=== PATIENT | female | born 1980 | race Caucasian/White ===

== ENCOUNTER 2019-12-15 10:51 | Inpatient (IN) | payer OTHER ==
--- NOTE | 2019-12-15 11:07 | BHS.RME ---
Substance Use & Tx History - Substance Use History Heroin Substance amount: 4 bags Frequency of use: Daily Substance route: Inhalation (ex: sniffing or snorting) Date of Last Use: 12/15/19 Xanax Substance amount: 2mg 2-3 tabs Frequency of use: Daily Substance route: Oral Date of Last Use: 12/13/19 Nicotine Substance amount: 1/2pack Frequency of use: Daily Substance route: Smoking Date of Last Use: 12/15/19 Physical/Psych/Mental Status - Behavior General Behavior: Increased activity (restlessness, agitation) Eye Contact: Normal - Cooperativeness Cooperativeness: Cooperative - Thinking Thought Processes: Tight, Logical, Goal Directed - Physical Health Problems Is patient presently having any pain?: No Does patient presently have any injuries (include location): No Does patient currently have a fever: No Is patient : No COWS - Scale Resting Pulse: 1= [place] 81-100 Sweatin= Chills/Flushing Restless Observation: 1= Difficult to Sit Still Pupil Size: 1= Pupils >than Normal Bone or Joint Aches: 2= Severe Diffuse Aches Runny Nose/ Eye Tearin= Nasal Congestion GI Upset > 30mins: 1= Stomach Cramp Tremor Observation: 1= Tremor [place], Not Seen Yawning Observation: 1= 1-2x During Session Anxiety or Irritability: 2=Irritable/Anxious Goose Flesh Skin: 0=Smooth Skin COWS Score: 12
--- NOTE | 2019-12-15 11:44 | HP ---
COWS - Scale Resting Pulse: 1= [place] 81-100 Sweatin= Chills/Flushing Restless Observation: 1= Difficult to Sit Still Pupil Size: 1= Pupils >than Normal Bone or Joint Aches: 2= Severe Diffuse Aches Runny Nose/ Eye Tearin= Nasal Congestion GI Upset > 30mins: 1= Stomach Cramp Tremor Observation: 1= Tremor [place], Not Seen Yawning Observation: 1= 1-2x During Session Anxiety or Irritability: 2=Irritable/Anxious Goose Flesh Skin: 0=Smooth Skin COWS Score: 12 CIWA Score - Admission Criteria OASAS Guidelines: Admission for Medically Managed Detox: Requires at least one of the followin. CIWA greater than 12 2. Seizures within the past 24 hours 3. Delirium tremens within the past 24 hours 4. Hallucinations within the past 24 hours 5. Acute intervention needed for co occurring medical disorder 6. Acute intervention needed for co occurring psychiatric disorder 7. Severe withdrawal that cannot be handled at a lower level of care (continued vomiting, continued diarrhea, abnormal vital signs) requiring intravenous medication and/or fluids 8. Admitting History and Physical - Admission Chief Complaint: Ms. Simons is a 39 yo woman who presents to [facility] requesting a detox admission for heroin and benzodiazepine use. History of Present Illness: Ms. Simons is a 39 yo woman who presents to [facility] requesting a detox admission for heroin and benzodiazepine use. This is her first visit to [facility]. PMH: gastritis, herniated lumbar discs PSH/Legal: none Psych: paranoid schizophrenia, bipolar, anxiety, on meds/compliant SOC: lives with significant other Substance Use History Heroin Substance amount: 4 bags heroin, 4 bags Fentanyl Frequency of use: Daily Substance route: Inhalation (ex: sniffing or snorting) Date of Last Use: 12/15/19 First use age 38 y Xanax Substance amount: 2mg 2-3 tabs Frequency of use: Daily Substance route: Oral Date of Last Use: 12/13/19 First use age 26y Nicotine Substance amount: 1/2pack Frequency of use: Daily Substance route: Smoking Date of Last Use: 12/15/19 First use age 12 y History Source: Patient Limitations to Obtaining History: No Limitations Admission [facility] [place] Allergies/Adverse Reactions: Allergies Allergy/AdvReac Type Severity Reaction Status Date / Time Penicillins Allergy Difficulty Verified 12/15/19 11:33 Breathing Exam Limitations: No Limitations - Ebola screening Have you traveled outside of the country in the last 21 days: No Have you been sick,other than usual withdrawal symptoms: No Do you have a fever: No - Review of Systems Constitutional: No Symptoms Reported EENT: reports: No Symptoms Reported Respiratory: reports: No Symptoms reported Cardiac: reports: No Symptoms Reported GI: reports: No Symptoms Reported : reports: No Symptoms Reported Musculoskeletal: reports: Back Pain (herniated lumbar discs) Integumentary: reports: No Symptoms Reported Neuro: reports: No Symptoms reported Endocrine: reports: No Symptoms Reported Hematology: reports: No Symptoms Reported Psychiatric: reports: Anxious Patient History - Smoking Cessation Smoking history: Current every day smoker Have you smoked in the past 12 months: Yes Aproximately how many cigarettes per day: 10 Hx Chewing Tobacco Use: No Initiated information on smoking cessation: Yes 'Breaking Loose' booklet given: 12/15/19 - Substances abused Alprazolam (Xanax) Substance route: Oral Frequency: Daily Amount used: 2-3 TABS Age of first use: 26 Date of last use: 12/13/19 Other Other (specify): FENTANYL Substance route: Inhalation Frequency: Daily Amount used: 4 BAGS Age of first use: 38 Date of last use: 12/15/19 Admission Physical Exam [facility] - Physical General Appearance: Yes: No Apparent Distress, Nourished HEENTM: Yes: EOMI, Hearing grossly Normal, Normocephalic, Normal Voice Respiratory: Yes: Lungs Clear, Normal Breath Sounds, No Accessory Muscle Use Neck: Yes: Within Normal Limits, Supple Breast: Yes: Breast Exam Deferred Cardiology: Yes: Regular Rhythm, Regular Rate, S1, S2 Abdominal: Yes: Normal Bowel Sounds, Non Tender, Flat, Soft Genitourinary: Yes: Other (deferred) Back: Yes: Normal Inspection Musculoskeletal: Yes: Gait Steady Extremities: Yes: Normal Inspection, Non-Tender Neurological: Yes: Alert, Normal Mood/Affect, Normal Response Integumentary: Yes: Normal Color, Dry, Warm - Diagnostic (1) Opioid withdrawal Current Visit: Yes Status: Acute (2) Sedative dependence Current Visit: Yes Status: Acute (3) Nicotine dependence Current Visit: Yes Status: Acute (4) Bipolar 1 disorder Current Visit: Yes Status: Acute Cleared for Admission S - Detox or Rehab [facility] Level of Care: Medically Managed Detox Regimen/Protocol: Ativan, Methadone Inpatient Rehab Admission - Rehab Decision to Admit Inpatient rehab admission?: No
[2019-12-15 11:56] VITALS: BMI 25.9
[2019-12-15] MEDS ORDERED: BISMUTH SUBSALICYLATE 262 MG/15 ML BTL PO PRN (12:12)
[2019-12-15] MEDS ORDERED: METHOCARBAMOL 500 MG TABLET PO PRN (12:12)
[2019-12-15] MEDS ORDERED: MENTHOL/PHENOL 1 EACH UD MM PRN (12:12)
[2019-12-15] MEDS ORDERED: MAGNESIUM HYDROX 2400MG/30ML ORAL SUSPENSION 30 ML CUP PO PRN (12:12)
[2019-12-15] MEDS ORDERED: METHADONE HCL 10 MG TABLET (FOR DETOX USE ONLY) PO ONE (12:12)
[2019-12-15] MEDS ORDERED: ONDANSETRON *ODT* 4 MG TABLET SL PRN (12:12)
[2019-12-15] MEDS ORDERED: LORazepam 1 MG TABLET PO PRN (12:12)
[2019-12-15] MEDS ORDERED: cloNIDine HCL 0.1 MG TABLET PO PRN (12:12)
[2019-12-15] MEDS ORDERED: ACETAMINOPHEN 325 MG TABLET (FP) PO PRN ×2 (12:12)
[2019-12-15] MEDS ORDERED: MAGNESIUM CITRATE 300 ML BOTTLE PO PRN (12:12)
[2019-12-15] MEDS ORDERED: IBUPROFEN 400 MG TABLET (FP) PO PRN (12:12)
[2019-12-15] MEDS ORDERED: MAG HYDROX/AL HYDROX/SIMETH 30 ML UNIT-DOSE CUP PO PRN (12:12)
[2019-12-15] MEDS ORDERED: NICOTINE POLACRILEX 2 MG GUM BUC PRN (12:12)
[2019-12-15] MEDS: PRENATAL VITAMINS W/ FOLIC ACID TABLET (FP) PO SCH (13:15)
[2019-12-15] MEDS: NICOTINE 14 MG/24 HOURS TOPICAL PATCH TD SCH (13:15)
--- NOTE | 2019-12-15 14:10 | EKG ---
Test Reason : Blood Pressure : / mmHG Vent. Rate : 071 BPM Atrial Rate : 071 BPM P-R Int : 144 ms QRS Dur : 094 ms QT Int : 420 ms P-R-T Axes : 053 010 030 degrees QTc Int : 456 ms NORMAL SINUS RHYTHM INCOMPLETE RIGHT BUNDLE BRANCH BLOCK BORDERLINE ECG NO PREVIOUS ECGS AVAILABLE Confirmed by Pedro Sanabria MD ([id number]) on 12/15/2019 2:09:45 PM Referred By: Confirmed By:Pedro Sanabria MD
[2019-12-15 17:05] LABS: HEMATOCRIT 37.5 % (32.4-45.2); HEMOGLOBIN 12.5 GM/dL (10.7-15.3); MCHC 33.4 g/dl (32.0-36.0); MEAN CELL VOLUME 92.6 fl (80-96); MEAN PLT VOLUME 8.9 fl (7.5-11.1); PLATELET COUNT 182 K/MM3 (134-434); RBC 4.05 M/mm3 (3.60-5.2); RDW 13.1 % (11.6-15.6)
--- NOTE | 2019-12-15 17:21 | CONSULT ---
[facility] Psychiatric Consult - Data Date of interview: 12/15/19 Admission source: [facility] Identifying data: First visit to [facility] and admission to [address] [place] [address] for this 39 y/o female self-referred for detoxification treatment. JOEY issues : heroin, benzodiazepine, nicotine. Patient is single, no dependents, domiciled (lives with biological mother), unemployed and supported on [facility] benefits. Substance Abuse History: Discussed with the patient. JOEY profile as follows : Smoking history: Current every day smoker. Have you smoked in the past 12 months: Yes. Aproximately how many cigarettes per day: 10. Hx Chewing Tobacco Use: No. Initiated information on smoking cessation: Yes. 'Breaking Loose' booklet given: 12/15/19. - Substances abused. Alprazolam (Xanax). Substance route: Oral. Frequency: Daily. Amount used: 2-3 TABS. Age of first use: 26. Date of last use: 12/13/19. Other. Other (specify): FENTANYL. Substance route: Inhalation. Frequency: Daily. Amount used: 4 BAGS. Age of first use: 38. Date of last use: 12/15/19 Medical History: Medical profile is remarkable for gastritis and herniated lumbar discs. Noted report of allergy to penicillins. Psychiatric History: Patient admits to a history of three psychiatric hospitalizations (all had occurred at the [facility] from 2017 to 2019). She endorses multiple diagnoses : Paranoid Schizophrenia, Bipolar Disorder, ADD, OCD, Anxiety Disorder. Ms Simons reports current OPD care at the [facility] mental health clinic. She is maintained on a regimen of seroquel + wellbutrin + trazodone + sertraline. She indicates that she last took her medications prior to this [facility] visit. Patient denies history of suicide attempts. Physical/Sexual Abuse/Trauma History: Not discussed. Patient declines. Additional Comment: Toxicology not available for review. Mental Status Exam - Mental Status Exam Alert and Oriented to: Time, Place, Person Cognitive Function: Good Patient Appearance: Well Groomed Mood: Hopeful Affect: Appropriate, Normal Range Patient Behavior: Fatigued, Appropriate, Cooperative Speech Pattern: Clear, Appropriate Voice Loudness: Normal Thought Process: Intact, Goal Oriented Thought Disorder: Not Present Hallucinations: Denies Suicidal Ideation: Denies Homicidal Ideation: Denies Insight/Judgement: Poor Sleep: Poorly, Difficulty falling asleep Gait/Station: Normal Psychiatric Findings - Problem List ([place] 1, 2,3) (1) Opioid withdrawal Status: Acute (2) Benzodiazepine dependence Status: Chronic (3) Nicotine dependence Status: Chronic (4) History of bipolar disorder Status: Chronic (5) Substance induced mood disorder Status: Suspected (6) Insomnia Status: Chronic - Initial Treatment Plan Initial Treatment Plan: Psychoeducation. Sleep hygiene. Support. Detoxification in progress. An/Sqq 89(V)15 [employer] made telephone contact ([phone]) with pharmacist at [id number] for verification of medications : on file, are scripts dated 11/30/19 but still waiting for picker and sorter load and unload, for wellbutrin XL 300 mg/day + seroquel 100 mg/bid (script for 400 mg has not been filled; pharmacist expresses doubt about the validity of that order) + zoloft 100 mg/bid + trazodone 100 mg/bid + vistaril 50 mg/bid. Medications will be ordered as follows : seroquel 100 mg po bid + wellbutrin XL 300 mg po daily + trazodone 50 mg po hs (reduced) + zoloft 100 mg po daily. Side effects/benefits of these drugs are discussed with the patient. Ms Simons is in agreement with this plan of care. [place] her informed consent (verbal) to MD. Castellanos.
[2019-12-15 17:22] LABS: ALBUMIN 3.8 g/dl (3.4-5.0); BILIRUBIN,TOTAL 0.2 mg/dL (0.2-1); BLOOD UREA NITROGEN 8.7 mg/dL (7-18); CREATININE 0.9 mg/dL (0.55-1.3); POTASSIUM 4.3 mmol/L (3.5-5.1); TOT PROT 7.6 g/dl (6.4-8.2)
[2019-12-15] MEDS: LORazepam 2 MG TABLET PO SCH ×2 (17:47→22:03)
[2019-12-15] MEDS: hydrOXYzine PAMOATE 25 MG CAPSULE (FP) PO SCH ×2 (18:07→22:04)
[2019-12-15] MEDS ORDERED: THIAMINE HCL 100 MG TABLET (FP) PO SCH (22:00)
[2019-12-15] MEDS ORDERED: traZODone HCL 50 MG TABLET (FP) PO SCH (22:00)
[2019-12-15] MEDS ORDERED: MELATONIN 5 MG TABLETS PO SCH (22:00)
[2019-12-15] MEDS: QUEtiapine FUMARATE 100 MG TABLET (FP) PO SCH (22:04)
[2019-12-16] MEDS: LORazepam 2 MG TABLET PO SCH ×2 (06:15→10:15)
[2019-12-16] MEDS: hydrOXYzine PAMOATE 25 MG CAPSULE (FP) PO SCH ×4 (06:15→14:42)
[2019-12-16] MEDS ORDERED: METHADONE HCL 10 MG TABLET (FOR DETOX USE ONLY) ONE (09:07)
[2019-12-16] MEDS ORDERED: METHADONE HCL 5 MG TABLET (FOR DETOX USE ONLY) ONE (09:08)
[2019-12-16] MEDS ORDERED: SERTRALINE HCL 50 MG TABLET (FP) PO SCH (10:00)
[2019-12-16] MEDS ORDERED: METHADONE (DETOX) 20 MG, METHADONE (DETOX) 5 MG PO ONE (10:00)
[2019-12-16] MEDS: QUEtiapine FUMARATE 100 MG TABLET (FP) PO SCH (10:15)
[2019-12-16] MEDS: PRENATAL VITAMINS W/ FOLIC ACID TABLET (FP) PO SCH (10:16)
[2019-12-16] MEDS: NICOTINE 14 MG/24 HOURS TOPICAL PATCH TD SCH (10:21)
--- NOTE | 2019-12-16 10:53 | PN ---
S CIWA - CIWA Score Nausea/Vomitin-No Nausea/No Vomiting Muscle Tremors: 2 Anxiety: 2 Agitation: 1-Slight > Activity Paroxysmal Sweats: 1-Minimal Palms Moist Orientation: 0-Oriented Tacttile Disturbances: 0-None Auditory Disturbances: 0-None Visual Disturbances: 2-Mild Sensitivity Headache: 0-None Present CIWA-Ar Total Score: 8 S COWS - Scale Resting Pulse: 1= [place] 81-100 Sweatin= Chills/Flushing Restless Observation: 0= Sits Still Pupil Size: 1= Pupils >than Normal Bone or Joint Aches: 0= None Runny Nose/ Eye Tearin= None GI Upset > 30mins: 2= Nausea/Diarrhea Tremor Observation of Outstretched Hands: 2= Slight Tremor Visible Yawning Observation: 0= None Anxiety or Irritability: 1=Feels Anxious/Irritable Goose Flesh Skin: 0=Smooth Skin COWS Score: 8 S Progress Note (SOAP) Subjective: 39 years old female admitted on 12/15/19 for benzo and opiate withdrawal sx m anagement terating with ativan and methaodne detox regiment feeling tired resting in bed limited conversation with staff Objective: 12/16/19 10:56 Vital Signs - 24 hr 12/15/19 12/15/19 12/15/19 11:53 13:38 13:39 Temperature 98.7 F 96.8 F L Pulse Rate 90 82 Respiratory 20 16 Rate Blood Pressure 117/86 127/80 O2 Sat by Pulse 97 Oximetry (%) 12/15/19 12/15/19 12/16/19 17:13 20:44 03:24 Temperature 97.3 F L 97.5 F L Pulse Rate 79 83 Respiratory 18 18 18 Rate Blood Pressure 120/76 114/72 O2 Sat by Pulse 96 Oximetry (%) 12/16/19 12/16/19 06:34 08:52 Temperature 97.5 F L 97.5 F L Pulse Rate 66 91 H Respiratory 18 20 Rate Blood Pressure 123/82 120/74 O2 Sat by Pulse 99 Oximetry (%) Laboratory Tests 12/15/19 12/15/19 12/15/19 12:00 12:00 12:00 WBC 10.0 RBC 4.05 Hgb 12.5 Hct 37.5 MCV 92.6 MCH 31.0 MCHC 33.4 RDW 13.1 Plt Count 182 MPV 8.9 Sodium Potassium Chloride Carbon Dioxide Anion Gap BUN Creatinine Est GFR (CKD-EPI)AfAm Est GFR (CKD-EPI)NonAf Random Glucose Calcium Total Bilirubin AST ALT Alkaline Phosphatase Total Protein Albumin POC Urine HCG, Qual Negative Syphilis Serology HIV Ag/Ab Combo Qual Negative 12/15/19 12/15/19 12:00 12:00 WBC RBC Hgb Hct MCV MCH MCHC RDW Plt Count MPV Sodium 139 Potassium 4.3 Chloride 104 Carbon Dioxide 29 Anion Gap 6 L BUN 8.7 Creatinine 0.9 Est GFR (CKD-EPI)AfAm 92.70 Est GFR (CKD-EPI)NonAf 79.98 Random Glucose 91 Calcium 9.0 Total Bilirubin 0.2 AST 32 ALT 27 Alkaline Phosphatase 87 Total Protein 7.6 Albumin 3.8 POC Urine HCG, Qual Syphilis Serology Non-reactive HIV Ag/Ab Combo Qual lab noted Assessment: 12/16/19 10:56 benzo and opiate withdrawal Plan: ativan and methadone regiments
[2019-12-16 13:22] VITALS: BP 124/81; PULSE 89; TEMP 97.3
--- NOTE | 2019-12-16 14:45 | DS ---
[facility] Detox Discharge Summary Admission Date: 12/15/19 Discharge Date: 12/16/19 - History Present History: Opioid Dependence, Sedative Dependence Additional Comments: 39 years old female admitted on 12/15/19 for benzo and opiate withdrawal sx management insists to leave the detox unit with a male peer alert oriented x 3 speech clearly good eye contact cardiac s1s2 regular rate rhythm, ekg indicated right bundle branch block denies chest pain no shortness of breath no dizziness discussing the risks of early termination of the detox regiment ms roldan understands the consequences as well as aware of the voluntary in patient detox status that ms roldan insists to leave the detox with the male peer respiratory clear lung sounds bilaterally on auscultation extremities full range of motion Pertinent Past History: time for discharge 57 minutes team met with the patient risks of benzo mixed with opiate were discussed ms roldan insists to leave the detox with male peer - Physical Exam Results Vital Signs: Vital Signs Temperature 97.3 F L 12/16/19 12:32 Pulse Rate 89 12/16/19 12:32 Respiratory Rate 16 12/16/19 12:32 Blood Pressure 124/81 12/16/19 12:32 O2 Sat by Pulse Oximetry (%) 98 12/16/19 12:32 Pertinent Admission Physical Exam Findings: benzo opiate withdrawal Laboratory Tests 12/15/19 12/15/19 12/15/19 12:00 12:00 12:00 WBC 10.0 RBC 4.05 Hgb 12.5 Hct 37.5 MCV 92.6 MCH 31.0 MCHC 33.4 RDW 13.1 Plt Count 182 MPV 8.9 Sodium Potassium Chloride Carbon Dioxide Anion Gap BUN Creatinine Est GFR (CKD-EPI)AfAm Est GFR (CKD-EPI)NonAf Random Glucose Calcium Total Bilirubin AST ALT Alkaline Phosphatase Total Protein Albumin POC Urine HCG, Qual Negative Syphilis Serology COVID-19 (ARELIS) HIV Ag/Ab Combo Qual Negative 12/15/19 12/15/19 12/15/19 12:00 12:00 12:30 WBC RBC Hgb Hct MCV MCH MCHC RDW Plt Count MPV Sodium 139 Potassium 4.3 Chloride 104 Carbon Dioxide 29 Anion Gap 6 L BUN 8.7 Creatinine 0.9 Est GFR (CKD-EPI)AfAm 92.70 Est GFR (CKD-EPI)NonAf 79.98 Random Glucose 91 Calcium 9.0 Total Bilirubin 0.2 AST 32 ALT 27 Alkaline Phosphatase 87 Total Protein 7.6 Albumin 3.8 POC Urine HCG, Qual Syphilis Serology Non-reactive COVID-19 (ARELIS) Not detected HIV Ag/Ab Combo Qual lab noted - Treatment Hospital Course: Detox Protocol Followed, Responded well Patient has Accepted a Rehab Referral to: [facility] substance abuse out patient facility - Medication Discharge Medications: Ambulatory Orders Bupropion HCl [Bupropion Xl] 300 mg PO DAILY 12/15/19 Hydroxyzine HCl 100 mg PO HS 12/15/19 Quetiapine Fumarate [Seroquel -] 100 mg PO HS 12/15/19 Quetiapine Fumarate [Seroquel -] 400 mg PO HS 12/15/19 Sertraline HCl [Zoloft] 200 mg PO DAILY 12/15/19 traZODone HCL [Trazodone HCl] 200 mg PO HS 12/15/19 - Diagnosis (1) Opioid withdrawal Status: Acute (2) Sedative dependence Status: Acute (3) Nicotine dependence Status: Acute Qualifiers: Nicotine product type: cigarettes Substance use status: in withdrawal Qualified Code(s): F17.213 - Nicotine dependence, cigarettes, with withdrawal (4) Substance induced mood disorder Status: Suspected - AMA Did Patient Leave Against Medical Advice: Yes CIWA Score - CIWA Score Nausea/Vomitin-No Nausea/No Vomiting Muscle Tremors: 2 Anxiety: 2 Agitation: 1-Slight > Activity Paroxysmal Sweats: 1-Minimal Palms Moist Orientation: 0-Oriented Tacttile Disturbances: 0-None Auditory Disturbances: 0-None Visual Disturbances: 2-Mild Sensitivity Headache: 0-None Present CIWA-Ar Total Score: 8 COWS (PN) - Opiate Withdrawal Resting Pulse: 1= [place] 81-100 Sweatin= Chills/Flushing Restless Observation: 0= Sits Still Pupil Size: 1= Pupils >than Normal Bone or Joint Aches: 1= Mild Discomfort Runny Nose/ Eye Tearin= None GI Upset > 30mins: 2= Nausea/Diarrhea Tremor Observation of Outstretched Hands: 0= None Yawning Observation: 0= None Anxiety or Irritability: 2=Irritable/Anxious Goose Flesh Skin: 0=Smooth Skin COWS Score: 8
[2019-12-17] MEDS ORDERED: LORazepam 1 MG TABLET PO SCH (05:00)
[2019-12-17] MEDS ORDERED: METHADONE HCL 10 MG TABLET (FOR DETOX USE ONLY) PO ONE (10:00)
[2019-12-18] MEDS ORDERED: LORazepam 0.5 MG TABLET PO PRN
[2019-12-18] MEDS ORDERED: LORazepam 0.5 MG TABLET PO SCH (05:00)
[2019-12-18] MEDS ORDERED: METHADONE (DETOX) 10 MG, METHADONE (DETOX) 5 MG PO ONE (10:00)
[2019-12-19] MEDS ORDERED: LORazepam 0.5 MG TABLET PO ONE (05:00)
[2019-12-19] MEDS ORDERED: METHADONE HCL 10 MG TABLET (FOR DETOX USE ONLY) PO ONE (10:00)
[2019-12-20] MEDS ORDERED: METHADONE HCL 5 MG TABLET (FOR DETOX USE ONLY) PO ONE (06:00)
== END 2019-12-16 15:43 | disposition left against medical advice (07) | DRG 894 ==
LOC: YASAS 10:51 → Y3N 11:38
PROVIDERS: ADMIT Allergy & Immunology; ATTEND Allergy & Immunology
PROC: HZ2ZZZZ Detoxification Services for Substance Abuse Treatment (ICD-10-PCS; principal; 2019-12-15)
DX: F11.23 Opioid dependence with withdrawal (principal); F20.0 Paranoid schizophrenia; F13.230 Sedative, hypnotic or anxiolytic dependence with withdrawal, uncomplicated; F17.213 Nicotine dependence, cigarettes, with withdrawal; F19.24 Other psychoactive substance dependence with psychoactive substance-induced mood disorder; F31.9 Bipolar disorder, unspecified; F41.9 Anxiety disorder, unspecified; F90.9 Attention-deficit hyperactivity disorder, unspecified type; F42.9 Obsessive-compulsive disorder, unspecified; G47.00 Insomnia, unspecified; I45.10 Unspecified right bundle-branch block; Z88.0 Allergy status to penicillin; Z59.0 Homelessness
CPT/HCPCS: 36415; 80053; 81025; 85027; 86780; 87389; 93005; 93010; U0003